=== PATIENT | female | born 1995 | race Caucasian/White ===

== ENCOUNTER 2020-02-24 09:55 | Emergency (ER) | payer OTHER ==
[~2020-02-24] VITALS: Ht 160 cm; Wt 72.6 kg
[~2020-02-24 09:55] MED LIST: BUPROPION HCL150 M2 PO; PRENATAL VITAM1 EACH PO
[2020-02-24] MEDS ORDERED: PROMETHAZINE HC25 M1 PO (12:01)
[2020-02-24] MEDS ORDERED: PROMETHAZINE HC25 MG PR (12:01)
== END 2020-02-24 12:14 | disposition home or self-care (01) ==
LOC: ED 09:55
DX: K29.70 Gastritis, unspecified, without bleeding (principal); F17.200 Nicotine dependence, unspecified, uncomplicated; Z91.040 Latex allergy status; Z88.5 Allergy status to narcotic agent; Z88.0 Allergy status to penicillin; Z71.6 Tobacco abuse counseling
CPT/HCPCS: 80053; 81001; 83690; 84703; 85025; 96361; 96374; 99284-25; 99406; J2765; J7030

== ENCOUNTER 2020-06-09 05:45 | Day surgery (SDC) | payer BC, OTHER ==
[~2020-06-09] VITALS: Ht 160 cm; Wt 65.8 kg
[~2020-06-09 05:45] MED LIST changes: +NEXPLANON68 MG SUB-Q; +PROMETHAZINE HC25 M1 PO; +PROMETHAZINE HC25 MG PR
[2020-06-09] MEDS ORDERED: ALLERGY MEDICAT25 MG PO (05:55)
--- NOTE | 2020-06-09 08:27 | NUR ---
06/09/20 0827 Niru Zavala 0813- PT ARRIVES TO PACU NONAROUSABLE TO NOXIOUS STIMULI WITH AN OPA IN PLACE. PT ON 6L O2 VIA MASK. OXYGEN SAT HIGH 90'S TO 100% ON THIS. RESP EVEN AND UNLABORED. 0820- PT AROUSING AND REACHING UP TO REMOVE HER OPA. PT INSTRUCTED TO OPEN HER MOUTH. PT IS ABLE TO FOLLOW THIS COMMAND. OPA REMOVED. 0822- OXYGEN TITRATED OFF. 0824- PT PROVIDED WITH ICE WATER PER HER REQUEST. TOLERATING WELL.
--- NOTE | 2020-06-09 08:43 | NUR ---
ICED WATER AND CRACKERS GIVEN. MELL KENDALL ON WARM. CALL LIGHT WITHIN REACH.
[2020-06-09] MEDS ORDERED: MOTRIN IB200 MG PO (09:10)
--- NOTE | 2020-06-09 10:27 | NUR ---
LE 0940: DISCHARGE INSTRUCTIONS ARE GIVEN AND PATIENT VERBALIZES UNDERSTANDING. PATIENT IS GETTING DRESSED. SHE TRANSFERS HERSELF TO THE WHEELCHAIR AND THEN TO PERSONAL VEHICLE AND SHE TOLERATES THAT WELL.
--- NOTE | 2020-06-09 16:35 | OR ---
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 PROCEDURE: Loop electrical excision procedure (LEEP). ANESTHESIA: General. ESTIMATED BLOOD LOSS: 5 mL. COMPLICATIONS: None. DRAINS: None. FINDINGS: Normal vagina. Normal small cervix. No aceto-white changes and no nonstaining from Lugol's. DESCRIPTION OF PROCEDURE: The patient was brought to the operating room and placed in supine position. After adequate general anesthesia was obtained, she was placed in the dorsal lithotomy position, prepped and draped in usual sterile fashion. A coated speculum with suction tubing attached was inserted in the vagina and the cervix observed. The cervix was then coated with acetic acid. No aceto-white lesions were seen. The cervix was then carefully painted with Lugol solution, and no nonstaining areas were seen at this time either. Four mL of 1% lidocaine with epinephrine was then injected in a circumferential fashion into the cervical tissue. A 10 x 10 loop was then attached to the LEEP machine and the blended current was used to cut the middle part of the cervix out using the loop. The specimen was sent off and labeled cervix. A Electronically Signed By: DARRICK RICARDO MD 06/09/20 1635 PATIENT NAME: BILLY BRADSHAW OPERATIVE REPORT DATE OF : [birth year] REPORT #: [id number] PHYSICIAN: DARRICK RICARDO MD PCP: LEELA FOREMAN REPORT IS CONFIDENTIAL AND NOT TO BE RELEASED WITHOUT AUTHORIZATION [facility] [address] [place] [id number] Signed 5 x 5 mm. Loop was then placed in the hand piece and a second piece was taken inside the first area down the endocervical canal. This piece then removed, then labeled endocervix. The remaining portion of the endocervix was then scraped in 360-degree fashion with Kevorkian curette and the specimen labeled ECC. At this point, there was slight bleeding and ball electrode used to cauterize the biopsy site. Good hemostasis was then noted. There was no bleeding. Monsel's solution was then placed in the biopsy site to further help with hemostasis. Again, good hemostasis was noted, so all instruments were removed from vagina. The patient tolerated the procedure well and went to the recovery room in good condition. Sponge, needle, and instrument count correct at the end of the procedure. Three specimens sent to Pathology for identification. MD YANY Chavez/EVERETTL /[id number] cc: ROGER Mace Copies: LEELA FOREMAN ~ Electronically Signed By: DARRICK RICARDO MD 06/09/20 1635 PATIENT NAME: BILLY BRADSHAW OPERATIVE REPORT DATE OF : [birth year] REPORT #: [id number] PHYSICIAN: DARRICK RICARDO MD PCP: LEELA FOREMAN REPORT IS CONFIDENTIAL AND NOT TO BE RELEASED WITHOUT AUTHORIZATION
--- NOTE | 2020-06-13 17:05 | PATH ---
[facility] [address] [facility] [place], [place] [address] Signed SPECIMEN(S): A CERVIX SPECIMEN(S): B ENDOCERVICAL BIOPSY SPECIMEN(S): C ENDOCERVICAL CURETTINGS SPECIMEN SOURCE: A. CERVIX B. ENDOCERVICAL BIOPSY C. ENDOCERVICAL CURETTINGS CLINICAL HISTORY: A-C. KIMBERLY III. FINAL PATHOLOGIC DIAGNOSIS: A. Cervix, LEEP: - High-grade squamous intraepithelial lesion (KIMBERLY 2-3). - Endocervical margins: Positive for HSIL. - Ectocervical margins: Negative for dysplasia. B. Endocervix, biopsy: - High-grade squamous intraepithelial lesion, involving endocervical glands. - HSIL is present at cauterized tissue edges. - See comment. C. Endocervix, curettage: - Detached rare fragment of HSIL. - Detached endocervical glands with reactive changes. - See Comment. COMMENT: Regarding specimen B: Though HSIL is seen at the cauterized tissue edges, the fragment of tissue was unoriented, therefore final margin status cannot be determined. Regarding specimen C: A rare, un-oriented fragment of dysplastic squamous epithelium is present. A p16 immunohistochemical stain (with appropriately staining controls) was performed shows full-thickness positivity in this fragment, confirming HSIL. Due to fragmentation, KIMBERLY grade is not assigned. The patient's most recent cervical cytology specimen from 04/12/2020 ([id number]) interpreted as HSIL, was reviewed. NAL:cml:C NR MICROSCOPIC EXAMINATION: Histologic sections of all submitted blocks are examined by light microscopy. PATIENT NAME: BILLY BRADSHAW PATHOLOGY DATE OF : [birth year] REPORT #: [id number] PHYSICIAN: JENNIFER MÉNDEZ PCP: LEELA FOREMAN REPORT IS CONFIDENTIAL AND NOT TO BE RELEASED WITHOUT AUTHORIZATION [facility] [address] [place], [place] [address] Signed These findings, together with the gross examination, support the pathologic diagnosis. GROSS DESCRIPTION: Three specimens are received in three containers, labeled "FS." A. The specimen, labeled "FS, cervical biopsy," is received in formalin and consists of one unoriented cervical cone tissue that measure 1.6 x 1.4 x 0.4 cm. The ectocervix is pink-foy, smooth. The specimen is inked and serial section. Specimen is entirely submitted in cassettes (A1-A2). B. The specimen, labeled "FS, endocervical biopsy," is received in formalin and consists of one piece of irregular shaped cervical tissue that measure 1.2 x 0.9 x 0.8 cm. The ectocervix is pink-red, focally congested. The resection margins are inked and serial section. Specimen is entirely submitted in cassette (B1). C. The specimen, labeled "FS, endocervical curettings," is received in formalin and consists of irregular shaped mucinous and hemorrhagic tissue fragment that aggregate measure 2.2 x 0.8 x 0.3 cm. Specimen is entirely submitted in cassette (C1). JS (under the direct supervision of a pathologist) The Gross Description was prepared using a voice recognition system. The report was reviewed for accuracy; however, sound-alike word errors, addition and/or deletions may occur. If there is any question about this report, please contact Client Services. ADDITIONAL NOTES: Immunohistochemical and/or in situ hybridization studies were performed on this case with the appropriate positive controls that react as expected. This test was developed and its performance characteristics determined by [facility]. It has not been cleared or approved by the U.S. Food and Drug Administration. The FDA has determined that such clearance or approval is not necessary. This test is used for clinical purposes. It should not be regarded as investigational or for research. [facility] is certified under the Clinical Laboratory Improvement Amendments of 1988 (CLIA) as qualified to perform high complexity clinical laboratory testing. PERFORMING LABORATORY: The technical component was performed by [facility], [address] [place] [id number] (Wiping Cloth Cutter: Crystal Rice MD; CLIA# [id number]). PATIENT NAME: BILLY BRADSHAW PATHOLOGY DATE OF : [birth year] REPORT #: [id number] PHYSICIAN: JENNIFER MÉNDEZ PCP: LEELA FOREMAN REPORT IS CONFIDENTIAL AND NOT TO BE RELEASED WITHOUT AUTHORIZATION [facility] [address] [place], [place] [address] Signed [facility] [address] [address] (CLIA# [id number]). Diagnostician: Karen Alonso MD Pathologist Electronically Signed 06/13/2020 Copies: ~ PATIENT NAME: BILLY BRADSHAW PATHOLOGY DATE OF : [birth year] REPORT #: [id number] PHYSICIAN: JENNIFER PATHOLOGY PCP: LEELA FOREMAN REPORT IS CONFIDENTIAL AND NOT TO BE RELEASED WITHOUT AUTHORIZATION
== END 2020-06-09 09:45 | disposition home or self-care (01) ==
LOC: DS 05:45
PROVIDERS: General Practice
PROC: 0UBC7ZZ Excision of Cervix, Via Natural or Artificial Opening (ICD-10-PCS; principal; 2020-06-09 06:45)
DX: D06.9 Carcinoma in situ of cervix, unspecified (principal); F41.9 Anxiety disorder, unspecified; F32.9 Major depressive disorder, single episode, unspecified; F17.210 Nicotine dependence, cigarettes, uncomplicated; Z79.899 Other long term (current) drug therapy
CPT/HCPCS: 00940; J1100; J1885; J2001; J2250; J2405; J2704; J3010; J7121

== ENCOUNTER 2022-04-28 23:32 | Emergency (ER) | payer OTHER ==
[~2022-04-28] VITALS: Ht 160 cm; Wt 65.8 kg
[~2022-04-28 23:32] MED LIST changes: +ALLERGY MEDICAT25 MG PO; +MOTRIN IB200 MG PO
[2022-04-29] MEDS ORDERED: ONDANSETRON ODT8 MG PO (00:30)
== END 2022-04-29 02:21 | disposition home or self-care (01) ==
LOC: ED 23:32
DX: K29.70 Gastritis, unspecified, without bleeding (principal); F17.200 Nicotine dependence, unspecified, uncomplicated; Z88.5 Allergy status to narcotic agent; Z88.0 Allergy status to penicillin; Z91.040 Latex allergy status
CPT/HCPCS: 36415; 80053; 83690; 85025; 96361; 96374; 96375; 99284-25; A9270; G0480; J1790; J2405; J7030

== ENCOUNTER 2022-12-24 00:07 | Inpatient (IN) | payer OTHER ==
[~2022-12-24] VITALS: Ht 154.9 cm; Wt 86.6 kg
[~2022-12-24 00:07] MED LIST changes: +ONDANSETRON ODT8 MG PO
--- NOTE | 2022-12-24 12:31 | PR ---
[facility] [address] [facility] [place], [place] [address] Signed Progress Notes IP Datetime Report Generated by CPN: 12/24/2022 12:31 PROGRESS NOTES: [id number] Impression: Reassuring Heart Rate Procedures: Artificial ROM Plan: Continue Present Management VITAL SIGNS: [id number] Vital Signs: Reviewed; Within Normal Limits EXAM: [id number] Dilatation: 1.0 Effacement: 95 Station: -2 Contractions: irregular MEMBRANES: [id number] Membranes Status: Ruptured FETUS A: [id number] FHR Baseline: 135 Variability: Moderate 6-25bpm Accelerations: 15X15 Decelerations: None FHR Category: Category I Presentation: Vertex Comments on Fetus A: No evidence of acidemia FETUS B: [id number] Signing Physician: Elena Devries DO Copies: ~ *Electronically Signed* 12/24/22 1231 ELENA DEVRIES DO PATIENT NAME: BILLY BRADSHAW PROGRESS NOTE DATE OF : [birth year] PHYSICIAN: ELENA DEVRIES DO RPT #: [id number] REPORT IS CONFIDENTIAL AND NOT TO BE RELEASED WITHOUT AUTHORIZATION
--- NOTE | 2022-12-24 14:57 | PR ---
[facility] [address] [facility] [place] [address] Signed Progress Notes IP Datetime Report Generated by CPN: 12/24/2022 14:57 PROGRESS NOTES: [id number] Impression: Reassuring Heart Rate Procedures: Sterile Vag Exam Plan: Continue Present Management VITAL SIGNS: [id number] Vital Signs: Reviewed; Within Normal Limits EXAM: [id number] Dilatation: 2.0 Effacement: 100 Station: -1 Contractions: irregular MEMBRANES: [id number] Membranes Status: Ruptured Comments: Reviewed with pt - progress is normal for s/p LEEP with scarring Continue expectant labor mgmt at this time FETUS A: [id number] FHR Baseline: 135 Variability: Moderate 6-25bpm Accelerations: 15X15 Decelerations: None FHR Category: Category I Presentation: Vertex Comments on Fetus A: No evidence of acidemia FETUS B: [id number] Signing Physician: Elena Devries DO Copies: ~ *Electronically Signed* 12/24/22 1457 ELENA DEVRIES DO PATIENT NAME: AUGUSTINEBILLY PROGRESS NOTE DATE OF : [birth year] PHYSICIAN: ELENA DEVRIES DO RPT #: [id number] REPORT IS CONFIDENTIAL AND NOT TO BE RELEASED WITHOUT AUTHORIZATION
--- NOTE | 2022-12-24 17:04 | PR ---
[facility] [address] [facility] [place], [place] [address] Signed Progress Notes IP Datetime Report Generated by CPN: 12/24/2022 17:04 PROGRESS NOTES: [id number] Impression: Reassuring Heart Rate Procedures: Sterile Vag Exam Plan: Continue Present Management VITAL SIGNS: [id number] Vital Signs: Reviewed; Within Normal Limits EXAM: [id number] Dilatation: 2.0 Effacement: 100 Station: -1 Contractions: irregular MEMBRANES: [id number] Membranes Status: Ruptured Comments: Strip reviewed. Pt sleeping soundly, cervical check deferred FETUS A: [id number] FHR Baseline: 135 Variability: Moderate 6-25bpm Accelerations: 15X15 Decelerations: None FHR Category: Category I Presentation: Vertex Comments on Fetus A: No evidence of acidemia FETUS B: [id number] Signing Physician: Elena Devries DO Copies: ~ *Electronically Signed* 12/24/22 1704 ELENA DEVRIES DO PATIENT NAME: GWENDOLYN BRADSHAWEVA GALLEGOSLE PROGRESS NOTE DATE OF : [birth year] PHYSICIAN: ELENA DEVRIES DO [facility] #: [id number] REPORT IS CONFIDENTIAL AND NOT TO BE RELEASED WITHOUT AUTHORIZATION
--- NOTE | 2022-12-25 09:17 | PR ---
[facility] [address] [facility] [place], [place] [address] Signed PP Progress Notes Datetime Report Generated by CPN: 12/25/2022 09:17 SUBJECTIVE: [id number] Pain: Within Normal Limits Nausea/Vomiting: Denies Flatus: Yes Bowel Movement: No Vital Signs: [id number] Vital Signs: Reviewed; Within Normal Limits Abdomen/Uterus: Normal Lochia: Normal Extremities: Normal Progress: Normal Exam Comments: Fundus firm, below umbilicus, non tender. IMPRESSION/PLAN/PROCEDURES: [id number] Impression: Normal Progression Plan: Continue Present Management; Discharge Procedures: None Progress Notes: 27 yo s/p vaginal delivery. PPD# 1. Doing well. Denies AGUILAR, CP, SOB, F/C, N/V, RUQ pain, changes in vision, vaginal discharge. Reports bleeding is slowing down. Tolerating regular diet, ambulating, pain controlled, voiding, positive flatus. Plan: Meeting all hospital milestones. Would like to be discharged home at 24 hours post delivery. Will plan for early evening discharge. Signing Physician: Adele Galarza MD Copies: ~ *Electronically Signed* 12/25/22 0917 ADELE GALARZA MD PATIENT NAME: BILLY BRADSHAW PROGRESS NOTE DATE OF : [birth year] PHYSICIAN: ADELE GALARZA MD RPT #: [id number] REPORT IS CONFIDENTIAL AND NOT TO BE RELEASED WITHOUT AUTHORIZATION
== END 2022-12-25 19:00 | disposition home or self-care (01) | DRG 807 ==
LOC: FBC 00:07
PROVIDERS: ADMIT Obstetrics & Gynecology; ATTEND Obstetrics & Gynecology
PROC: 10E0XZZ Delivery of Products of Conception, External Approach (ICD-10-PCS; principal; 2022-12-24)
PROC: 10907ZC Drainage of Amniotic Fluid, Therapeutic from Products of Conception, Via Natural or Artificial Opening (ICD-10-PCS; 2022-12-24)
PROC: 3E0P7VZ Introduction of Hormone into Female Reproductive, Via Natural or Artificial Opening (ICD-10-PCS; 2022-12-24)
PROC: 00HU33Z Insertion of Infusion Device into Spinal Canal, Percutaneous Approach (ICD-10-PCS; 2022-12-24)
PROC: 3E0R3BZ Introduction of Anesthetic Agent into Spinal Canal, Percutaneous Approach (ICD-10-PCS; 2022-12-24)
PROC: 0U7C7ZZ Dilation of Cervix, Via Natural or Artificial Opening (ICD-10-PCS; 2022-12-24)
DX: O99.344 Other mental disorders complicating childbirth (principal); Z37.0 Single live birth; Z67.40 Type O blood, Rh positive; Z3A.39 39 weeks gestation of pregnancy; F17.210 Nicotine dependence, cigarettes, uncomplicated
CPT/HCPCS: 36415; 85027; 86850; 86900; 86901; A9270; J2590; J2795; J3010; J7121